=== PATIENT | male | born 1980 | race Two or more races ===

== ENCOUNTER 2019-10-12 12:58 | Emergency (ER) | payer SELFPAY ==
[~2019-10-12] VITALS: Ht 180.3 cm; Wt 100.0 kg
[2019-10-12 13:09] VITALS: BP 157/95
[2019-10-12] MEDS ORDERED: DIPH,PERTUSS(ACELL),TET VAC/PF 0.5 ML SYRINGE. VAX IM ONE (13:30)
[2019-10-12] MEDS ORDERED: LIDOCAINE 1%/EPI 1:100,000 20 ML VIAL. SQ ONE (13:30)
--- NOTE | 2019-10-12 13:54 | PHYS DOC ---
Past Medical History Past Medical History: No Pertinent History Past Surgical History: Tonsillectomy Smoking Status: Current Every Day Smoker Alcohol Use: None Drug Use: None General Adult EDM: Chief Complaint: LACERATION/AVULSION HPI: HPI: Patient is a 39 year old [place] male who presents to the ER with complaints of lacerations to his right thumb and palm after accidentally cutting himself on his mower blade while trying to tighten a bolt. Pt reports his last Tdap was over 10 years ago. Pt denies any numbness, tingling, or decreased ROM of the affected fingers. HE currently rates his pain a 10/10 on the pain scale, he denies any alleviating factors. Review of Systems: Review of Systems: Complete ROS is negative unless otherwise noted in HPI. Heart Score: Risk Factors: Risk Factors: DM, Current or recent (<one month) smoker, HTN, HLP, family history of CAD, obesity. Risk Scores: Score 0 - 3: 2.5% MACE over next 6 weeks - Discharge Home Score 4 - 6: 20.3% MACE over next 6 weeks - Admit for Clinical Observation Score 7 - 10: 72.7% MACE over next 6 weeks - Early Invasive Strategies Current Medications: Current Medications Medications (Trade) Dose Ordered Sig/Ramon Start Time Stop Time Status Last Admin Dose Admin Diphtheria/ Tetanus/Acell Pertussis (ADACEL TDap SYRINGE) 0.5 ml ONCE ONCE 10/12/19 13:30 10/12/19 13:31 DC Lidocaine/ Epinephrine (LIDOCAINE 1%-EPI 1:100,000 Multi-Dose) 20 ml 1X ONCE 10/12/19 13:30 10/12/19 13:31 DC 10/12/19 13:45 20 ML Allergies: Allergies: Allergies Coded Allergies Type Severity Reaction Last Updated Verified No Known Drug Allergies 12/10/15 No Physical Exam: PE: Constitutional: Well developed, well nourished, no acute distress, non-toxic appearance. [] HENT: Normocephalic, atraumatic, bilateral external ears normal, nose normal. [] Eyes: PERRLA, EOMI, conjunctiva normal, no discharge. [] Neck: Normal range of motion, no stridor. [] Cardiovascular:Heart rate regular rhythm Lungs & Thorax: Respirations even and unlabored, no retractions, no respiratory distress Skin: Warm, dry, no erythema, no rash; 3 cm laceration noted between DIP and PIP of right thumb, no visible foreign body, bleeding controlled with pressure dressing; 2.5 cm x 1.5 cm avulsion noted to lateral R thumb, no visible foreign body, bleeding controlled with pressure dressing [] Back: No tenderness Extremities: R hand: full extension and flexion of all fingers, No bony tenderness, no cyanosis, no clubbing, ROM intact, no edema. [] Neurologic: Alert and oriented X 3, no focal deficits noted. [] Psychologic: Affect normal, judgement normal, mood normal. [] Current Patient Data: Vital Signs: Vital Signs Date Time Temp Pulse Resp B/P (MAP) Pulse Ox O2 Delivery O2 Flow Rate FiO2 10/12/19 13:09 97.5 106 20 157/95 (115) 97 Room Air 97.5 EKG: EKG: [] Radiology/Procedures: Radiology/Procedures: Laceration Repair by me: Anesthesia: 1% lidocaine with epi locally Location: R thumb Tendon/Joint/Nerves: No injury Foreign body: None detected after copious irrigation and exploration Technique: 12 Simple Interrupted Sutures with 4-0 Ethilon Complexity: No subcutaneous sutures/mucosal repair/edge excision Post Closure Length: 3 cm Anesthesia: 1% lidocaine locally Location: L palm Tendon/Joint/Nerves: No injury Foreign body: None detected after copious irrigation and exploration Technique: 8 Simple Interrupted Sutures with 3-0 Ethilon, 2 simple interrupted sutures with 4-0 Ethilon Complexity: No subcutaneous sutures, extensive repair of wound margins with undermining and revision of the wound edges using an 11 blade scalpel Post Closure Length: 3 cm Patient's bleeding was easily controlled in the department and there is no indication of anemia. No evidence of compartment syndrome, neurologic injury, vascular injury, open joint, tendon laceration, or foreign body. Patient is appropriate for outpatient follow up. Course & Med Decision Making: Course & Med Decision Making Pertinent Labs and Imaging studies reviewed. (See chart for details) Laneon Disclaimer: Мария Disclaimer: This electronic medical record was generated, in whole or in part, using a voice recognition dictation system. Departure Departure Impression: Primary Impression: Laceration of thumb, right Qualified Codes: S61.011A - Laceration without foreign body of right thumb without damage to nail, initial encounter Additional Impressions: Laceration of hand, right, complicated Qualified Codes: S61.411A - Laceration without foreign body of right hand, initial encounter Need for Tdap vaccination Disposition: 01 HOME, SELF-CARE Condition: STABLE Referrals: NAMAN MCCALL MD (PCP) Patient Instructions: Laceration Care, Adult, [id number], VIS, Tetanus, Diphtheria (Td); Tetanus, Diphtheria, Pertussis (Tdap) - [facility] Additional Instructions: Fill the prescription and use as directed. Keep the area clean and dry. You may take Tylenol or ibuprofen as needed for pain. Keep the dressing that was placed today on for 24 hours then change the dressing twice a day and apply antibiotic ointment to the area. Wear the splints that were placed until the sutures are removed. Do not use your right hand for lifting or twisting until the sutures are removed. Follow-up with your primary care doctor, or return to the emergency room in 14 days to have the sutures removed, sooner if you develop signs of infection including: redness, warmth, drainage, or a fever. [] Scripts Cephalexin (KEFLEX) 500 Mg Capsule 500 MG PO QID for 7 Days, #28 CAP 0 Refills Prov: MURRAY FOSTER DIAGNOSTIC MEDICAL SONOGRAPHER 10/12/19 MURRAY FOSTER DIAGNOSTIC MEDICAL SONOGRAPHER Oct 12, 2019 13:54
[2019-10-12] MEDS ORDERED: SURGICEL HEMOSTAT 4X8 EACH. TP ONE (14:00)
[2019-10-12] MEDS ORDERED: CEPH-264 PO (16:03)
== END 2019-10-12 16:16 | disposition home or self-care (01) ==
LOC: ER 12:58
DX: S61.011A Laceration without foreign body of right thumb without damage to nail, initial encounter (principal); S61.411A Laceration without foreign body of right hand, initial encounter; F17.200 Nicotine dependence, unspecified, uncomplicated; W27.8XXA Contact with other nonpowered hand tool, initial encounter; Y93.89 Activity, other specified; Y92.89 Other specified places as the place of occurrence of the external cause; Y99.8 Other external cause status
CPT/HCPCS: 12002; 90471; 90715; 99283; J3490

== ENCOUNTER 2019-10-29 11:26 | Emergency (ER) | payer BC ==
[~2019-10-29] VITALS: Ht 180.3 cm; Wt 86.3 kg
[~2019-10-29 11:26] MED LIST: CEPH-264 PO
[2019-10-29 11:34] VITALS: BP 122/81
--- NOTE | 2019-10-29 11:54 | PHYS DOC ---
Past Medical History Past Medical History: No Pertinent History Past Surgical History: Tonsillectomy Smoking Status: Current Every Day Smoker Alcohol Use: None Drug Use: None General Adult EDM: Chief Complaint: SUTURE/STAPLE REMOVAL HPI: HPI: Patient is a 39 year old male who presents for suture removal from the right thumb and right palm. Sutures have been present for 2 weeks, states he still can not move the thumb. Review of Systems: Review of Systems: Constitutional: Denies fever or chills. [] Musculoskeletal: Denies back pain or joint pain. [] Integument: Visit for suture removal Neurologic: Denies headache, focal weakness or sensory changes. [] Psychiatric: Denies depression or anxiety. [] Heart Score: Risk Factors: Risk Factors: DM, Current or recent (<one month) smoker, HTN, HLP, family history of CAD, obesity. Risk Scores: Score 0 - 3: 2.5% MACE over next 6 weeks - Discharge Home Score 4 - 6: 20.3% MACE over next 6 weeks - Admit for Clinical Observation Score 7 - 10: 72.7% MACE over next 6 weeks - Early Invasive Strategies Allergies: Allergies: Allergies Coded Allergies Type Severity Reaction Last Updated Verified No Known Drug Allergies 12/10/15 No Physical Exam: PE: Constitutional: Well developed, well nourished, no acute distress, non-toxic appearance. [] Skin: Warm, dry,right thumb and palm with well approximated laceration site with interrupted sutures. Limited ROM to the right distal thumb specifically flexion at the DIP joint. No signs of infection. Back: No tenderness, no CVA tenderness. [] Extremities: No tenderness, no cyanosis, no clubbing, ROM intact, no edema. [] Neurologic: Alert and oriented X 3, normal motor function, normal sensory functi on, no focal deficits noted. [] Psychologic: Affect normal, judgement normal, mood normal. [] Current Patient Data: Vital Signs: Vital Signs Date Time Temp Pulse Resp B/P (MAP) Pulse Ox O2 Delivery O2 Flow Rate FiO2 10/29/19 11:34 97.7 91 18 122/81 (95) 98 Room Air 97.7 EKG: EKG: [] Radiology/Procedures: Radiology/Procedures: [] Course & Med Decision Making: Course & Med Decision Making Pertinent Labs and Imaging studies reviewed. (See chart for details) Approx. 8 sutures were removed from the right palm, and approx. 10 sutures were removed from the right thumb. Limited ROM to the right thumb DIP joint. Recommended f/u with a hand surgeon of his choice. Мария Disclaimer: Мария Disclaimer: This electronic medical record was generated, in whole or in part, using a voice recognition dictation system. Departure Departure Impression: Primary Impression: Visit for suture removal Disposition: HOME, SELF-CARE Condition: STABLE Referrals: NAMAN MCCALL MD (PCP) follow up with a hand surgeon of your choice in one week Patient Instructions: Suture Removal Additional Instructions: Keep your laceration site clean and dry. Please follow-up with a hand surgeon of your choice in 1 week if you are not able to flex your right thumb MIKHAIL JAIME [employer] October 29, 2019 11:54
== END 2019-10-29 11:57 | disposition home or self-care (01) ==
LOC: ER 11:26
DX: S61.011D Laceration without foreign body of right thumb without damage to nail, subsequent encounter (principal); S61.411D Laceration without foreign body of right hand, subsequent encounter; F17.200 Nicotine dependence, unspecified, uncomplicated; Z90.89 Acquired absence of other organs; W27.8XXD Contact with other nonpowered hand tool, subsequent encounter
CPT/HCPCS: 99281